=== PATIENT | male | born 1955 | race Caucasian/White ===

== ENCOUNTER → 2017-12-22 | Outpatient (CLI) | payer BC ==
[~2017-12-22] MED LIST: ALLO300T PO; BENA40TA3 PO; BISO1TAB7 PO; MELO7.5T29 PO
--- NOTE | 2017-12-22 15:53 | KCIC ---
MRI Lumbar Spine without contrast History: Degenerative disc disease of the lumbar spine, chronic back pain, bilateral hip pain Technique: Multiplanar, multi sequential noncontrast MR imaging was performed of the lumbar spine. Contrast: None Comparison: None Findings: Lumbar vertebral body stature is maintained. There is minimal grade 1 anterior spondylolisthesis L4-5. There is mild disc desiccation L3-4. There is minimal edema of the superior L3 and L2 endplates probably reactive/degenerative in etiology. Conus terminates at L1. L2-L3: Neural foramina and spinal canal are adequate. There is mild to moderate facet degenerative change. L3-L4: There is mild bilateral facet hypertrophic change. Spinal canal and neural foramina are adequate. L4-L5: There is moderate facet degenerative change and minimal buckling of the ligamentum flavum. Spinal canal is adequate. There is mild narrowing of the right neural foramen, left neural foramen overall adequate. L5-S1: There is [id number] facet degenerative change greater on the left. Spinal canal is adequate. Neural foramina are adequate. There may be a complex synovial cyst at the anterolateral aspect of the left facet articulation up to about 0.6 cm, no impingement of the exiting left L5 nerve root. Impression: 1. There is multilevel lumbar facet degenerative change. There is minimal grade 1 anterior spondylolisthesis L4-5. There is no significant lumbar spinal stenosis. There is minimal narrowing of the right L4-5 neural foramen. Electronically signed by: Chevy Ge MD (12/22/2017 3:50 PM) [facility]-KCIC[facility]
--- NOTE | 2017-12-22 16:03 | KCIC ---
MRI Thoracic Spine without contrast History: Chronic back pain, bilateral hip pain, degenerative disc disease Technique: Multiplanar, multi sequential noncontrast MR imaging was performed of the thoracic spine. Contrast: None Comparison: None Findings: There is mild motion. Thoracic vertebral body stature is preserved. AP alignment is within normal limits. Thoracic cord caliber is within normal limits without significant focal signal abnormality. There is no significant marrow edema. There is multilevel posterior epidural lipomatosis greatest T4 to T11-12, attenuation of the thecal sac greatest at T7 at which residual AP thecal sac measures about 9 mm. There is no significant focal posterior disc abnormality of the thoracic spine. There is multilevel mild disc desiccation. Thoracic neural foramina are overall adequate. There is multilevel thoracic spondylosis with anterolateral osteophytes greatest at T6-T7 through T11-12. Impression: 1. There is no significant thoracic spinal stenosis, multilevel attenuation of the thecal sac due to posterior epidural lipomatosis. Electronically signed by: Chevy Ge MD (12/22/2017 4:00 PM) [facility]-KCIC[facility]
== END | disposition home or self-care (01) ==
LOC: KCIC MRI 14:11
PROVIDERS: ATTEND Family Medicine
DX: M47.896 Other spondylosis, lumbar region (principal); M43.16 Spondylolisthesis, lumbar region; M48.061 Spinal stenosis, lumbar region without neurogenic claudication; M47.894 Other spondylosis, thoracic region; M25.78 Osteophyte, vertebrae; G89.29 Other chronic pain
CPT/HCPCS: 72146; 72148

== ENCOUNTER → 2018-01-11 | Outpatient (CLI) | payer BC ==
[~2018-01-11] MED LIST changes: +AMLO5TAB7 PO; +HYDR12.58 PO; +IOHEXOL 180 MG/ML 10 ML VIAL. ONE; +LIDOCAINE 2% PF 2ML VIAL. ONE; +methylPREDNISolone ACETATE 40 MG/ML VIAL. ONE; +methylPREDNISolone ACETATE 80 MG/ML VIAL. ONE
--- NOTE | 2018-01-11 16:39 | PAIN ---
DATE OF SERVICE: 01/11/2018 INITIAL CONSULTATION FOR PAIN CLINIC CHIEF COMPLAINT: Low back and bilateral hip and lower extremity pain. HISTORY OF PRESENT ILLNESS: This is a 62-year-old male who presents with history of pain in the low back, bilateral lower extremities, mostly in the posterior hips and side of the thighs for about 40 years. The patient reports it is worse over the past 2 years or so, worse with standing, walking, changing positions, not as a result of any specific injury or action he is aware of. The patient was active in the army. Also, multiple jobs with heavy lifting, moving items and abusing his back over the years by his report. The patient reports it is worse with standing and walking now, sometimes sitting for prolonged periods, greater than 30 minutes, wakes him from sleep for about 4-6 times a night, when he changes positions. Does not affect his bowel or bladder control or his ability to walk, not using any assistive devices. The patient has had counseling, chiropractic treatment and exercises and therapies in the past, nothing recently and all of them were temporary in decreasing the pain, but they did help to some extent. The patient reports the pain is constant, sharp, stabbing in the low back itself, changes during the day, worse with activity, standing, walking, better with sitting briefly or with lying down. The patient reports radiation to bilateral lower extremities, essentially equally right and left lateral thighs, lateral anterior thighs as well. The patient did have MRI scan of lumbar spine showing multiple level lumbar facet degenerative change with minimal grade 1 anterior spondylolisthesis, L4-L5. No spinal stenosis, minimal narrowing of the right L4-L5 neural foramen with minimal buckling of ligamentum flavum at that level as well. The patient also has a complex synovial cyst at L5-S1 level on the left facet articulation. The patient reports no loss of motor function, but significant fatigability in both lower extremities with walking and standing. The patient rates his disability rate from 0-10, 10 being the worst, as a 6-7 with family home responsibilities, recreation, social activity, 5 with occupation and sexual behavior, 4 with self care, 9 with life support activities. PAST MEDICAL HISTORY: Significant for dizziness, hypertension, hearing loss, cigarette smoking, quit in 1984, arthritis. PREVIOUS SURGERY: Includes right hand tendon repair, tonsillectomy at age 5, cholecystectomy in 2010. CURRENT MEDICATIONS: Include benazepril, bisoprolol, allopurinol, hydrochlorothiazide and amlodipine. ALLERGIES: The patient has no known drug allergies. FAMILY HISTORY: Significant for cancers. SOCIAL HISTORY: The patient does drink about 1/2-1 pint of alcohol daily by his report. Smokes 3-4 times a week, cigarettes, less than a pack of cigarettes per week though/ He is and lives with his spouse and lives locally in [place], [place]. 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 REVIEW OF SYSTEMS: The patient's review of systems is positive for those items mentioned in history of present illness. All systems reviewed and otherwise negative. It is complete, full and well documented on the patient's chart. PHYSICAL EXAMINATION: VITAL SIGNS: The patient's blood pressure 132/90, pulse 86, respirations 18, temperature 98.6 degrees Fahrenheit. Height is 5 feet 9 inches. Weight 215 pounds. GENERAL: The patient is awake, alert, oriented, appropriate, very pleasant demeanor. HEENT: Head shows normocephalic, atraumatic. Extraocular movements intact and symmetrical. Oral cavity: Mucous membranes moist and pink. Dentition is intact. NECK: Shows anterior throat supple without palpable lymphadenopathy noted. Swallow reflex symmetrical. CHEST: Shows normal on inspection. Breath sounds clear to auscultation bilaterally. HEART: Shows S1, S2 clear. No murmurs auscultated. ABDOMEN: Soft, nontender, nondistended. No palpable organomegaly is noted. No rebound or guarding demonstrated. BACK: Shows spine grossly in the midline. Normal appearing thoracic kyphosis as well as cervical lordotic curvature and lumbar lordotic curvature. Lumbar paraspinous muscle shows symmetrical on inspection, shows with palpation, moderate tenderness throughout the upper, middle, lower distribution of paraspinous muscles only diffusely without radiation. No tenderness over the sacrum or sacroiliac regions, over the spinous process. The patient has good rotational motion of lumbar spine, both laterally as well as extension and flexion without difficulty. LOWER EXTREMITIES: Show deep tendon reflexes at 2+ in the patellar, 1+ tendo-calcaneus tendons are equal. Motor exam is strong with 5/5 dorsiflexion, extension, quadriceps and hamstring flexion symmetrical. The patient's peripheral pulses are 1+ posterior tibia. No peripheral edema is noted. Lower extremities are warm and dry to touch, equal in color and appearance. Negative straight leg raise bilaterally, negative Gaenslen and negative Kamlesh maneuvers bilaterally as well. The patient is able to stand on his toes without difficulty or loss of balance, walks with a slight shuffling gait, but not using assistive devices to ambulate. The patient's skin shows warm and dry, good turgor. No edema. No sores, rashes or bruises. IMPRESSION: 1. This is a 62-year-old male with a long history about 40 years of increased low back pain, worse over the past two years with radiating to bilateral lower extremities as well as in the low back in a radicular fashion. 2. MRI scan of lumbar spine as noted. 3. Arthritis. 4. Hypertension. 5. Dizziness. PLAN: Options were discussed with the patient including conservative medical management, physical therapy, interventional techniques. He would like to pursue interventional techniques. We discussed a lumbar epidural steroid injection using description as well as anatomical models to describe the procedure. Risks were then discussed including, but not limited to bleeding, infection, possibility of epidural hematoma, subsequent neurological compromise, dural puncture, headaches, spinal cord and/or nerve damage, side effects of steroid medication and poor results regarding pain control. The patient understands and wished to proceed. The patient will return to clinic in approximately 2 weeks for followup. He was counseled on return appointment, activity level and side effects to be aware of. DIAGNOSES: Lumbar radiculopathy with lumbar degenerative disk disease, lumbar spondylosis. PROCEDURES: Lumbar epidural steroid injection, translaminar approach at L4-L5 level using C-arm fluoroscopic guidance under sterile prep and drape using local anesthetic. MEDICATION INJECTED: A total of 120 mg Depo-Medrol, plus 10 mL of preservative-free normal saline and 2 mL of Isovue for contrast. CONDITION AT DISCHARGE: Stable. The patient tolerated the procedure well, had no complications. REY SUTHERLAND MD DR: ANTHONY/frank JOB#: [id number] / [id number] FIORDALIZA Castro MD
== END | disposition home or self-care (01) ==
LOC: PNCL 09:40
PROVIDERS: ATTEND Anesthesiology
DX: M51.16 Intervertebral disc disorders with radiculopathy, lumbar region (principal); M47.26 Other spondylosis with radiculopathy, lumbar region; I10 Essential (primary) hypertension; M19.90 Unspecified osteoarthritis, unspecified site; Z87.891 Personal history of nicotine dependence; H91.90 Unspecified hearing loss, unspecified ear; Z90.49 Acquired absence of other specified parts of digestive tract; Z98.890 Other specified postprocedural states; Z79.899 Other long term (current) drug therapy; Z72.89 Other problems related to lifestyle
CPT/HCPCS: 62323; J1030; J1040; J2001; Q9965

== ENCOUNTER → 2018-01-26 | Outpatient (CLI) | payer BC ==
[~2018-01-26] MED LIST changes: +LIDOCAINE 1% PF 2 ML VIAL. ONE; -LIDOCAINE 2% PF 2ML VIAL. ONE
--- NOTE | 2018-01-26 21:25 | PAIN ---
DATE OF SERVICE: 01/26/2018 PROGRESS NOTE FOR PAIN CLINIC DIAGNOSES: Lumbar radiculopathy with lumbar degenerative disk disease and lumbar and lumbosacral spondylosis. HISTORY OF PRESENT ILLNESS: The patient is a 62-year-old male who returns for followup status post lumbar epidural steroid injection x 1. The patient reports about 50% improvement after the injection for the first 2 weeks or so. The patient reports the pain is still present but much improved. This is the best he has felt in many years. The patient reports the pain is still more on the right than the left in the low back but is doing much better until the last about 3 days ago with sitting for prolonged period over the weekend and this seemed to exacerbate some of the pain. The patient reports this is now a 4-5 on a scale of 10 at its worst, 2 on average, 2 at its least and is a 2 today. The patient reports it is aching, tight, off and on in intensity; worse with standing, walking, changing positions and prolonged sitting for more than an hour or so. The patient reports it is awakening him from sleep but only once about every 4 hours. He usually needs to get right back to sleep and repositions. The patient reports no new motor or sensory deficits and no new bowel or bladder incontinence or other complaints. PHYSICAL EXAMINATION: VITAL SIGNS: The patient's blood pressure 135/83, pulse 59, respirations are 20, temperature 98.1 degrees Fahrenheit, height 5 feet 9 inches and weight is 209 pounds. GENERAL: The patient is awake, alert, oriented, appropriate and very pleasant demeanor. HEENT: Head shows normocephalic and atraumatic. The patient is wearing eyeglasses. Extraocular movements intact and symmetrical. Oral cavity: Mucous membranes are moist and pink. Dentition is intact. NECK: Shows anterior throat supple without palpable lymphadenopathy noted. Swallow reflex symmetrical. CHEST: Shows normal on inspection. Breath sounds clear to auscultation bilaterally. HEART: Shows S1 and S2 clear. No murmurs auscultated. ABDOMEN: Soft, nontender and nondistended. No palpable organomegaly is noted. No rebound or guarding demonstrated. BACK: Shows spine grossly in the midline. Normal appearing thoracic kyphosis and lumbar lordotic curvature. Lumbar paraspinous muscle shows symmetrical on inspection, on palpation shows some moderate tenderness but only diffusely with palpation in the low lumbar distribution without radiation. No trigger points. No difficulty with rotational motion both laterally as well as extension and flexion. EXTREMITIES: Lower extremities show deep tendon reflexes 2+ in the patellar, 1+ tendo-calcaneus tendons. Motor exam is strong with 5/5 dorsiflexion, extension, quadriceps and hamstring flexion admitted symmetrical. Femoral pulses are 1+, posterior tibia. No peripheral edema is noted. Options were discussed with the patient. The patient's old chart was reviewed as well as his current medication regimen updated. Current review of systems updated today as well. We will proceed with a second in the series of lumbar epidural steroid injection today with fluoroscopic guidance. Risks were again discussed including, but not limited to bleeding, infection, possibility of epidural hematoma, subsequent neurologic compromise, dural puncture, headaches, spinal cord and/or nerve damage, side effects of steroid medication and poor results regarding pain control. The patient understands and wished to proceed. The patient will return to the clinic in approximately 2 weeks for followup, was counseled as to return appointment, activity level and side effects to be aware of. DIAGNOSES: Lumbar radiculopathy, lumbar degenerative disk disease and lumbar spondylosis. PROCEDURES: Lumbar epidural steroid injection, translaminar approach at L4-L5 level using C-arm fluoroscopic guidance under sterile prep and drape using local anesthetic. MEDICATION INJECTED: A total of 120 mg Depo-Medrol plus 10 mL of preservative-free normal saline and 2 mL of Isovue for contrast. CONDITION AT DISCHARGE: Stable. The patient tolerated the procedure well and had no complications. REY SUTHERLAND MD DR: ANTHONY/frank JOB#: [id number] / [id number]
== END | disposition home or self-care (01) ==
LOC: PNCL 09:54
PROVIDERS: ATTEND Anesthesiology
DX: M51.16 Intervertebral disc disorders with radiculopathy, lumbar region (principal); M47.27 Other spondylosis with radiculopathy, lumbosacral region
CPT/HCPCS: 62323; J1030; J1040; Q9965

== ENCOUNTER → 2018-02-10 | Outpatient (CLI) | payer BC ==
--- NOTE | 2018-02-10 13:22 | PAIN ---
DATE OF SERVICE: 02/10/2018 DIAGNOSES: Lumbar radiculopathy with lumbar degenerative disk disease and lumbar spondylosis. HISTORY OF PRESENT ILLNESS: The patient is a 62-year-old male who returns for followup status post lumbar epidural steroid injection x 2. The patient reports about 50% improvement after the injection, better after the first and the second, significant improvement after the second injection, but still doing better. The patient reports increasing activity with walking, standing and getting around better, traveling in a car better, but sitting for prolonged periods is exacerbating the back pain more than usual. The patient shows good rotational motion of lumbar spine, reports no tenderness with extension or flexion at this time, mildly with extension only, but not with flexion, right and left lateral rotation, actually feels better when the patient does these maneuvers. The patient reports the pain returned, some cramping in the lower extremities, mostly in the low back itself. The patient reports no new motor or sensory deficits, no new bowel or bladder incontinence. The patient rates his pain a 6 on a scale of 10 at its worst, 4 on average, 2 at its least and is a 4 today. The patient reports it is aching, tight, shooting, stabbing, cramping in the legs, again slightly worse on the right leg than the left, but mostly the pain is in the low back. The patient reports it does not awaken him from sleep at night. It is better with lying down. PHYSICAL EXAMINATION: VITAL SIGNS: The patient's blood pressure 134/95, pulse 61, respirations 18, temperature 98.2 degrees Fahrenheit, height is 5 feet 9 inches, weight is 211 pounds. GENERAL: The patient is awake, alert, oriented, appropriate, very pleasant demeanor. HEENT: Head is normocephalic, atraumatic. Extraocular movements intact and symmetrical. Oral cavity: Mucous membranes moist and pink. Dentition is intact. NECK: Shows anterior throat supple without palpable lymphadenopathy noted. Swallow reflex is symmetrical. CHEST: Shows normal with inspection. Breath sounds clear to auscultation bilaterally. HEART: Shows S1, S2 clear. No murmurs auscultated. ABDOMEN: Soft, nontender, nondistended. No palpable organomegaly is noted. No rebound or guarding demonstrated. BACK: Shows spine grossly in the midline. Normal appearing thoracic kyphosis and lumbar lordotic curvature. Lumbar paraspinous muscle shows symmetrical on inspection, on palpation shows some moderate tenderness, but only diffusely with palpation without radiation. The patient has good rotational motion with some minor pain with extension of the spine and axial loading, but relieved with forward flexion. Right and left lateral rotation is nontender bilaterally. EXTREMITIES: Lower extremities show deep tendon reflexes at 2+ in the patellar, 1+ tendo calcaneus tendons. Motor exam is strong with 5/5 dorsiflexion, extension, quadriceps and hamstring flexion. Peripheral pulses are 1+ posterior tibia. No peripheral edema is noted bilaterally. Options were discussed with the patient. The patient's old chart was reviewed, as his current medication regimen updated. Current review of systems updated today as well. We will proceed with a third in the series of lumbar epidural steroid injection today with fluoroscopic guidance. Risks were again discussed including, but not limited to bleeding, infection, possibility of epidural hematoma and subsequent neurological compromise, dural puncture, headaches, spinal cord and/or nerve damage, side effects of steroid medication and poor results regarding pain control. The patient understands and wished to proceed. The patient to return to clinic in approximately 2 weeks for followup. She was counseled as to return appointment, activity level and side effects to be aware of. DIAGNOSES: Lumbar radiculopathy with lumbar degenerative disk disease, lumbar spondylosis. PROCEDURE: Lumbar epidural steroid injection, translaminar approach L4-L5 level using C-arm fluoroscopic guidance under sterile prep and drape using local anesthetic. MEDICATION INJECTED: A total of 120 mg Depo-Medrol, plus 10 mL of preservative free normal saline, 2 mL of Isovue for contrast. CONDITION ON DISCHARGE: Stable. The patient tolerated the procedure well, had no complications. REY SUTHERLAND MD DR: ANTHONY/frank JOB#: [id number] / [id number]
== END | disposition home or self-care (01) ==
LOC: PNCL 08:58
PROVIDERS: ATTEND Anesthesiology
DX: M51.16 Intervertebral disc disorders with radiculopathy, lumbar region (principal); M47.26 Other spondylosis with radiculopathy, lumbar region
CPT/HCPCS: 62323; J1030; J1040; Q9965

== ENCOUNTER → 2019-04-17 | Outpatient (CLI) | payer BC ==
[~2019-04-17] MED LIST changes: +AMLO5TAB10 PO; -AMLO5TAB7 PO; -BISO1TAB7 PO; +BISO1TAB8 PO; -IOHEXOL 180 MG/ML 10 ML VIAL. ONE; -LIDOCAINE 1% PF 2 ML VIAL. ONE; -methylPREDNISolone ACETATE 40 MG/ML VIAL. ONE; -methylPREDNISolone ACETATE 80 MG/ML VIAL. ONE
--- NOTE | 2019-04-17 13:42 | KCIC ---
EXAM: Bilateral hands, 3 views. HISTORY: Pain. COMPARISON: None. FINDINGS: 3 views of both hands are obtained. There is no fracture, dislocation or subluxation. There is mild left first carpometacarpal joint space narrowing. IMPRESSION: No acute osseous finding. Electronically signed by: Mireille Malone MD (04/17/2019 1:40 PM) [facility]
== END | disposition home or self-care (01) ==
LOC: KCIC 13:18
PROVIDERS: ATTEND Physician Assistant Medical
DX: G89.29 Other chronic pain (principal); M79.642 Pain in left hand; M79.641 Pain in right hand
CPT/HCPCS: 73130